=== PATIENT | female | born 1940 | race Caucasian/White ===

== ENCOUNTER → 2017-09-29 | Outpatient (CLI) | payer MEDICARE, OTHER ==
[~2017-09-29] MED LIST: MECLIZINE HCL12.5 MG PO; NITROGLYCERIN0.4 MG SUBLING
--- NOTE | 2017-09-29 15:12 | 2DMMODE ---
[place] [address] 2 D/M-MODE ECHOCARDIOGRAM Name: CATERINA TILLMAN [facility] [id number] Admission: 09/29/17 Attend Phys: Luis A Robertson, Discharge: Date of : 36 Date of Service: 09/29/17 1512 Report #: [id number] THIS REPORT FOR: //name// APPROVED REPORT Study performed: 09/29/2017 09:51:09 EXAM: Comprehensive 2D, Doppler, and color-flow Echocardiogram Patient Location: Out-Patient Status: routine BSA: 1.82 HR: 57 bpm BP: 140/85 mmHg Other Information Study Quality: Excellent Indications Aortic Valve Disease Murmur 2D Dimensions LVEF(%): 56.53 (>50%) IVSd: 13.83 (7-11mm) LVOT Diam: 20.21 (18-24mm) LVDd: 43.38 mm PWd: 10.38 (7-11mm) Ascending Ao: 28.19 (22-36mm) LVDs: 30.65 (25-40mm) Aortic Root: 30.92 mm Santamaria's LVEF: 56.53 % Volumes Left Atrial Volume (Systole) LA ESV Index: 25.40 mL/m2 Aortic Valve AoV Peak Vito.: 2.13 m/s AO Peak Gr.: 18.09 mmHg LVOT Max P.29 mmHg AO Mean Gr.: 10.37 mmHg LVOT Mean P.43 mmHg LVOT Max V: 1.15 m/s AO V2 VTI: 49.57 cm LVOT Mean V: 0.71 m/s KHURRAM (VTI): 1.78 cm2 LVOT V1 VTI: 27.49 cm Mitral Valve E/A Ratio: 0.73 [place] [address] 2 D/M-MODE ECHOCARDIOGRAM Name: CATERINA TILLMAN [facility]: [facility]#: [id number] Admission: 09/29/17 Attend Phys: Luis A Robertson, Discharge: Date of : 36 Date of Service: 09/29/17 1512 Report #: [id number] MV Decel. Time: 269.35 ms MV E Max Vito.: 0.81 m/s MV PHT: 78.11 ms MVA (PHT): 2.82 cm2 TDI E/Lateral E': 6.75 E/Medial E': 7.36 Medial E' Vito.: 0.11 m/s Lateral E' Vito.: 0.12 m/s Pulmonary Valve PV Peak Vito.: 1.05 m/s PV Peak Gr.: 4.42 mmHg Tricuspid Valve TR Peak Gr.: 20.78 mmHg RVSP: 25.78 mmHg Left Ventricle The left ventricle is normal size. There is normal LV segmental wall motion. There is normal left ventricular wall thickness. Left ventricular systolic function is normal. The left ventricular ejection fraction is within the normal range. LVEF is 55-60%. Grade I - abnormal relaxation pattern. Right Ventricle The right ventricle is normal size. The right ventricular systolic function is normal. Atria The left atrium size is normal. The right atrium size is normal. Aortic Valve Aortic valve is mildly calcified. No aortic regurgitation is present. Mild aortic stenosis. Mitral Valve The mitral valve is normal in structure. Mild mitral regurgitation. No evidence of mitral valve stenosis. Tricuspid Valve The tricuspid valve is normal in structure. Mild tricuspid regurgitation. The RVSP is _25.8 mmHg. Pulmonic Valve The pulmonary valve is normal in structure. There is [place] [address] 2 D/M-MODE ECHOCARDIOGRAM Name: CATERINA TILLMAN [facility]: [facility]#: [id number] Admission: 09/29/17 Attend Phys: Luis A Robertson, Discharge: Date of : 36 Date of Service: 09/29/17 1512 Report #: [id number] Great Vessels The aortic root is normal in size. IVC is normal in size and collapses with >50% inspiration Pericardium There is no pericardial effusion. <Conclusion> LVEF is 55-60%. Mild aortic stenosis. Mild mitral regurgitation. <ELECTRONICALLY SIGNED> By: Fletcher Rosales MD, [facility] 09/29/17 151 11 11 Fletcher Rosales MD, FACC /INF
== END ==
LOC: M.CRD 09:22
DX: I35.0 Nonrheumatic aortic (valve) stenosis (principal); I34.0 Nonrheumatic mitral (valve) insufficiency

== ENCOUNTER → 2018-10-11 | Outpatient (CLI) | payer MEDICARE, OTHER ==
--- NOTE | 2018-10-11 13:42 | 2DMMODE ---
[place] [address] 2 D/M-MODE ECHOCARDIOGRAM Name: CATERINA TILLMAN Room: [facility]#: [id number] Admission: 10/11/18 Attend Phys: Luis A Robertson, Discharge: Date of : 36 Date of Service: 10/11/18 1342 Report #: [id number] THIS REPORT FOR: //name// APPROVED REPORT Study performed: 10/11/2018 10:15:03 EXAM: Comprehensive 2D, Doppler, and color-flow Echocardiogram Patient Location: Out-Patient BSA: 1.79 HR: 67 bpm BP: 140/85 mmHg Other Information Study Quality: Good Indications Mitral Valve Disease 2D Dimensions IVSd: 16.26 (7-11mm) LVOT Diam: 20.56 (18-24mm) LVDd: 45.13 mm PWd: 11.72 (7-11mm) Ascending Ao: 30.56 (22-36mm) LVDs: 23.92 (25-40mm) Aortic Root: 26.84 mm Volumes Left Atrial Volume (Systole) LA ESV Index: 35.00 mL/m2 LV Strain GL Strain(%): 6.00 Aortic Valve AoV Peak Vito.: 2.56 m/s AO Peak Gr.: 26.16 mmHg LVOT Max P.42 mmHg AO Mean Gr.: 14.34 mmHg LVOT Mean P.75 mmHg LVOT Max V: 1.27 m/s AO V2 VTI: 53.95 cm LVOT Mean V: 0.75 m/s KHURRAM (VTI): 2.00 cm2 LVOT V1 VTI: 32.54 cm Mitral Valve E/A Ratio: 0.55 MV Decel. Time: 314.94 [place] [address] 2 D/M-MODE ECHOCARDIOGRAM Name: CATERINA TILLMAN [id number] Admission: 10/11/18 Attend Phys: Luis A Robertson, Discharge: Date of : 36 Date of Service: 10/11/18 1342 Report #: [id number] MV E Max Vito.: 0.58 m/s MV PHT: 91.33 ms MVA (PHT): 2.41 cm2 TDI E/Lateral E': 9.67 E/Medial E': 9.67 Medial E' Vito.: 0.06 m/s Lateral E' Vito.: 0.06 m/s Pulmonary Valve PV Peak Vito.: 1.06 m/s PV Peak Gr.: 4.52 mmHg Tricuspid Valve RAP Estimate: 5.00 mmHg TR Peak Gr.: 18.40 mmHg RVSP: 23.40 mmHg PA Pressure: 23.40 mmHg Left Ventricle The left ventricle is normal size. There is normal LV segmental wall motion. There is normal left ventricular wall thickness. Left ventricular systolic function is normal. LVEF is 55-60%. Grade I - abnormal relaxation pattern. Right Ventricle The right ventricle is normal size. The right ventricular systolic function is normal. Atria The left atrium size is normal. The right atrium size is normal. Aortic Valve Aortic valve is mildly calcified. No aortic regurgitation is present. Mild aortic stenosis. Mitral Valve The mitral valve is normal in structure. Mild mitral regurgitation. No evidence of mitral valve stenosis. Tricuspid Valve The tricuspid valve is normal in structure. Mild tricuspid regurgitation. No pulmonary hypertension. Pulmonic Valve The pulmonary valve is normal in structure. There is no pulmonic [place] [address] 2 D/M-MODE ECHOCARDIOGRAM Name: CATERINA TILLMAN Room: [facility]#: [id number] Admission: 10/11/18 Attend Phys: Luis A Robertson, Discharge: Date of : 36 Date of Service: 10/11/18 1342 Report #: [id number] Great Vessels The aortic root is normal in size. IVC is normal in size and collapses >50% with inspiration. Pericardium There is no pericardial effusion. <Conclusion> The left ventricle is normal size. There is normal left ventricular wall thickness. Left ventricular systolic function is normal. LVEF is 55-60%. Grade I - abnormal relaxation pattern. Aortic valve is mildly calcified. Mild aortic stenosis. Mild mitral regurgitation. Mild tricuspid regurgitation. No pulmonary hypertension. IVC is normal in size and collapses >50% with inspiration. <ELECTRONICALLY SIGNED> By: Luis A Robertson MD, FACC 10/11/18 1342 1342 134 Luis A Robertson MD, FACC /INF
== END ==
LOC: M.CRD 09:53
DX: I08.3 Combined rheumatic disorders of mitral, aortic and tricuspid valves (principal); Z88.0 Allergy status to penicillin

== ENCOUNTER → 2018-10-19 | Outpatient (CLI) | payer MEDICARE, OTHER ==
[2018-10-19 16:30] LABS: CALCIUM 9.1 mg/dL (8.5-10.1); CREATININE 0.8 mg/dL (0.6-1.3); POTASSIUM 3.8 mmol/L (3.5-5.1)
== END ==
LOC: M.LAB 15:50
PROVIDERS: Internal Medicine Cardiovascular Disease
DX: R41.3 Other amnesia (principal)

== ENCOUNTER 2019-01-15 13:54 | Emergency (ER) | payer MEDICARE, OTHER ==
[~2019-01-15] VITALS: Ht 167.6 cm; Wt 77.1 kg
[2019-01-15] MEDS ORDERED: LOSARTAN-HCTZ1 EAC2 PO (14:14)
[2019-01-15] MEDS ORDERED: ARICEPT 5 MG TAB5 MG PO (14:15)
[2019-01-15] MEDS ORDERED: PRAVACHOL40 MG PO (14:16)
[2019-01-15 14:46] LABS: ABSOLUTE BASOPHILS 0.1 thou/uL (0.0-0.2); ABSOLUTE EOSINOPHILS 0.1 thou/uL (0.0-0.7); ABSOLUTE LYMPHOCYTES 1.6 thou/uL (0.8-5.3); ABSOLUTE MONOCYTES 0.5 thou/uL (0.0-1.2); BASOPHILS 0.9 %; EOSINOPHILS 2.6 %; HEMATOCRIT 37.6 % (37.0-47.0); HEMOGLOBIN 12.3 gm/dL (12.0-15.0); LYMPHOCYTES 30.1 %; MCH 29.4 pg (26.0-34.0); MCHC 32.7 g/dL (28.0-37.0); MONOCYTES 9.9 %; NUCLEATED RBCS 0 /100WBC; PLATELET COUNT* 268 thou/uL (150-400); POLYS 56.5 %; RBC 4.18 mil/uL (4.20-5.00); RDW-CV 13.5 % (10.5-14.5); WBC 5.4 thou/uL (4.0-11.0)
[2019-01-15 15:04] LABS: ALBUMIN 3.5 g/dL (3.4-5.0); ALKALINE PHOSPHATASE 71 U/L (46-116); ANION GAP 9 mmol/L (7-16); CALCIUM 8.7 mg/dL (8.5-10.1); CHLORIDE 103 mmol/L (98-107); CO2 30 mmol/L (21-32); CREATININE 0.7 mg/dL (0.6-1.3); GLUCOSE 90 mg/dL (70-99); MAGNESIUM 1.8 mg/dL (1.8-2.4); POTASSIUM 4.1 mmol/L (3.5-5.1); SGOT 23 U/L (15-37); SGPT 28 U/L (30-65); SODIUM 142 mmol/L (136-145); TOTAL BILIRUBIN 0.5 mg/dL (<0.1-1.0); TOTAL PROTEIN 6.4 g/dL (6.4-8.2); TROPONIN-I LEVEL <0.06 ng/mL (<0.06)
[2019-01-15 15:14] LABS: BUN 16 mg/dL (7-18)
[2019-01-15 16:12] VITALS: BP 136/58
--- NOTE | 2019-01-16 14:59 | EKG ---
[place] [address] ELECTROCARDIOGRAM REPORT Name: CATERINA TILLMAN [id number] Admission: 01/15/19 Attend Phys: Discharge: 01/15/19 Date of : 36 Report #: [id number] THIS REPORT FOR: //name// [facility] ED Test Date: 2019-01-15 Test Time: 14:07:18 Pat Name: CATERINA TILLMAN Department: Room: Gender: F Gis Engineer: : 1940 Requested By: Karthikeyan Brannon Order Number: [id number] : Yoel Willingham Measurements Intervals [place] Rate: 56 P: 35 VA: 198 QRS: 15 QRSD: 86 T: 45 QT: 417 QTc: 403 Interpretive Statements Sinus rhythm Compared to ECG 03/11/2017 09:59:53 No significant changes Electronically Signed On 01-16-2019 14:59:25 CDT by Yoel Willingham [email or web address] <ELECTRONICALLY SIGNED> By: Yoel Willingham MD, [facility] 01/16/19 1459 1407 1407 Yoel Willingham MD, FACC /EPI
== END 2019-01-15 16:13 | disposition home or self-care (01) ==
LOC: M.ERS 13:54
PROVIDERS: Emergency Medicine
DX: R20.0 Anesthesia of skin (principal); Z88.0 Allergy status to penicillin; Z90.49 Acquired absence of other specified parts of digestive tract; Z90.89 Acquired absence of other organs

== ENCOUNTER 2019-02-03 16:15 | Emergency (ER) | payer MEDICARE, OTHER ==
[~2019-02-03] VITALS: Ht 167.6 cm; Wt 122.5 kg
[~2019-02-03 16:15] MED LIST changes: +ARICEPT 5 MG TAB5 MG PO; +LOSARTAN-HCTZ1 EAC2 PO; +PRAVACHOL40 MG PO
[2019-02-03] MEDS ORDERED: ZANAFLEX4 MG PO (18:23)
[2019-02-03 18:40] VITALS: BP 138/72
== END 2019-02-03 18:41 | disposition home or self-care (01) ==
LOC: M.ERS 16:15
DX: M25.511 Pain in right shoulder (principal); F03.90 Unspecified dementia, unspecified severity, without behavioral disturbance, psychotic disturbance, mood disturbance, and anxiety; Z90.49 Acquired absence of other specified parts of digestive tract; Z88.0 Allergy status to penicillin

== ENCOUNTER 2019-03-11 11:19 | Emergency (ER) | payer MEDICARE, OTHER ==
[~2019-03-11] VITALS: Ht 167.6 cm; Wt 71.7 kg
[~2019-03-11 11:19] MED LIST changes: +ZANAFLEX4 MG PO
[2019-03-11 12:04] LABS: ABSOLUTE EOSINOPHILS 0.1 thou/uL (0.0-0.7); ABSOLUTE LYMPHOCYTES 1.3 thou/uL (0.8-5.3); ABSOLUTE MONOCYTES 0.4 thou/uL (0.0-1.2); EOSINOPHILS 1.4 %; HEMATOCRIT 36.2 % (37.0-47.0); LYMPHOCYTES 27.5 %; MCH 30.5 pg (26.0-34.0); MCHC 33.3 g/dL (28.0-37.0); MCV 91.4 fL (80.0-100.0); MPV 7.8 fl. (7.2-11.1); NUCLEATED RBCS 0 /100WBC; PLATELET COUNT* 263 thou/uL (150-400); POLYS 62.1 %; RBC 3.96 mil/uL (4.20-5.00); RDW-CV 13.7 % (10.5-14.5); WBC 4.9 thou/uL (4.0-11.0)
[2019-03-11 12:14] LABS: URINE BILIRUBIN NEGATIVE (Negative); URINE BLOOD NEGATIVE (Negative); URINE CLARITY SL CLOUDY; URINE COLOR YELLOW; URINE GLUCOSE-RANDOM NEGATIVE (Negative); URINE KETONES NEGATIVE (Negative); URINE LEUKOCYTES-REFLEX NEGATIVE (Negative); URINE NITRITE-REFLEX NEGATIVE (Negative); URINE PROTEIN TRACE (Negative); URINE SPECIFIC GRAVITY >= 1.030 (1.005-1.030); URINE UROBILINOGEN 0.2 E.U./dl (0.2-1.0)
[2019-03-11 12:23] LABS: ANION GAP 10 mmol/L (7-16); BUN 14 mg/dL (7-18); CALCIUM 8.6 mg/dL (8.5-10.1); CHLORIDE 103 mmol/L (98-107); CO2 27 mmol/L (21-32); CREATININE 0.9 mg/dL (0.6-1.3); GLUCOSE 106 mg/dL (70-99); POTASSIUM 3.2 mmol/L (3.5-5.1); SODIUM 140 mmol/L (136-145)
[2019-03-11 12:35] LABS: ALBUMIN 3.5 g/dL (3.4-5.0); ALKALINE PHOSPHATASE 62 U/L (46-116); LIPASE 162 U/L (73-393); NT-PRO BRAIN NAT PEPTIDE 363 pg/mL (<300); SGOT 21 U/L (15-37); SGPT 23 U/L (30-65); TOTAL BILIRUBIN 0.6 mg/dL (<0.1-1.0); TOTAL PROTEIN 6.2 g/dL (6.4-8.2); TROPONIN-I LEVEL <0.06 ng/mL (<0.06)
[2019-03-11 13:17] VITALS: BP 134/56
--- NOTE | 2019-03-13 13:07 | EKG ---
[place] [address] ELECTROCARDIOGRAM REPORT Name: CATERINA TILLMAN [id number] Admission: 03/11/19 Attend Phys: Discharge: 03/11/19 Date of : 36 Report #: [id number] THIS REPORT FOR: //name// [facility] ED Test Date: 2019-03-11 Test Time: 11:34:19 Pat Name: CATERINA TILLMAN Department: Room: Gender: F Maintenance Welder: : 1940 Requested By: Karthikeyan Brannon Order Number: [id number] MD: Fletcher Rosales Measurements Intervals [place] Rate: 56 P: 37 UT: 196 QRS: 9 QRSD: 96 T: 42 QT: 432 QTc: 417 Interpretive Statements Sinus rhythm Atrial premature complex Compared to ECG 01/15/2019 14:07:18 Atrial premature complex(es) now present Electronically Signed On 03-13-2019 13:07:19 CDT by Fletcher Rosales [email or web address] <ELECTRONICALLY SIGNED> By: Fletcher Rosales MD, [facility] 03/13/19 1307 1134 1134 Fletcher Rosales MD, FACC /EPI
== END 2019-03-11 13:17 | disposition home or self-care (01) ==
LOC: M.ERS 11:19
PROVIDERS: Emergency Medicine
DX: R53.83 Other fatigue (principal); F03.90 Unspecified dementia, unspecified severity, without behavioral disturbance, psychotic disturbance, mood disturbance, and anxiety; Z90.89 Acquired absence of other organs; Z90.49 Acquired absence of other specified parts of digestive tract; Z88.0 Allergy status to penicillin